=== PATIENT | male | born 1995 | race Two or more races ===

== ENCOUNTER 2018-01-06 15:28 | Inpatient (IN) | payer OTHER ==
--- NOTE | 2018-01-06 16:04 | EDPHY ---
H & P Stated Complaint: sent from [facility]. L rib pain Time Seen by Provider: 01/06/18 15:33 HPI/ROS: CHIEF COMPLAINT: Chest pain, shortness of breath HISTORY OF PRESENT ILLNESS: 22-year-old male presents with chest pain and shortness of breath. He awoke this morning with chest pain. The chest pain 1st occurred when he bent over to pick something up. The pain is located in the central chest and is associated with exertional shortness of breath. He also has a mild cough. He went to [facility], and a chest x-ray revealed a moderate left pneumothorax. No recent trauma and no prior history of pneumothorax. REVIEW OF SYSTEMS: complete 10 point ROS reviewed and is negative except for the noted elements in the HPI - Personal History Current Tetanus/Diphtheria Vaccine: Yes Current Tetanus Diphtheria and Acellular Pertussis (TDAP): Yes - Medical/Surgical History Hx Asthma: No Hx Chronic Respiratory Disease: No Hx Diabetes: No Hx Cardiac Disease: No Hx Renal Disease: No Hx Cirrhosis: No Hx Alcoholism: No Hx HIV/AIDS: No Hx Splenectomy or Spleen Trauma: No Other PMH: anxiety - Social History Smoking Status: Never smoked Alcohol Use: Sober Additional Social History: Student at [employer], studying psychology - Physical Exam Exam: General Appearance: Alert, pleasant Eyes: Pupils equal and round, no conjunctival pallor ENT, Mouth: Mucous membranes moist Neck: Normal inspection Respiratory: Normal respiratory rate, Lungs are clear to auscultation Cardiovascular: Regular rate and rhythm Gastrointestinal: Abdomen is soft and nontender Neurological: A&O, nonfocal, normal gait Skin: Warm and dry, no rash Extremities: Normal inspection Psychiatric: Mood and affect normal Constitutional: Initial Vital Signs Temperature (C) 37.2 C 01/06/18 15:38 Heart Rate 97 01/06/18 15:38 Respiratory Rate 16 01/06/18 15:38 Blood Pressure 152/96 H 01/06/18 15:38 O2 Sat (%) 98 01/06/18 15:38 O2 Delivery Mode Room Air Allergies/Adverse Reactions: No Known Allergies Allergy (Verified 01/06/18 18:26) Home Medications: Medication Instructions Recorded NK [No Known Home Meds] 01/06/18 Medical Decision Making - Diagnostics Imaging Results: CXR: moderate left PTX Imaging: Discussed imaging studies w/ manager call center Radiologist, I viewed and interpreted images myself ED Course/Re-evaluation: This pt presents with a spontaneous PTX. VS stable including normal O2 saturation. Dr. Sanchez was consulted and saw pt in ED. Chest tube ( Heimlich valve) placed by Dr. Sanchez. Pt tolerated procedure well. VS remain unremarkable and pt has minimal pain. Pt admitted for obs. Differential Diagnosis: includes though not limited to ACS, pneumonia, PE, dissection - Data Points Medications Given: Hydrocodone Bitart/Acetaminophen (Myrtle 5/325) 1 - 2 tab PO Q4 PRN PRN Reason: Pain, Moderate Able to Take PO Stop: 01/16/18 17:27 Last Admin: 01/06/18 19:48 Dose: 1 tab Departure - Departure Disposition: [facility] Acute Clinical Impression: Pneumothorax on left Condition: Fair
[2018-01-06] MEDS ORDERED: ONDANSETRON 4 MG/2 ML VIAL IVP PRN (17:28)
--- NOTE | 2018-01-06 18:29 | GOP ---
DATE OF ADMISSION: 01/06/2018 PREOP DIAGNOSIS: Left pneumothorax. POSTOP DIAGNOSIS: Left pneumothorax. OPERATION PERFORMED: Left tube thoracostomy. INDICATIONS: A 22-year-old male with a left pneumothorax. DESCRIPTION OF PROCEDURE: Patient positioned 30 degrees head up. The anterior chest scrubbed with C hloraPrep, draped in the usual sterile fashion. Approximately 2 fingerbreadths above the left nipple , the skin was anesthetized, a small incision made, and further 1% lidocaine was infiltrated down thr ough the pectoralis muscle and into the pleural space, where air was easily aspirated. A pneumo cath 8-Panamanian catheter was slid over needle introducer and into the space, and when air was obtained, the catheter was advanced off the stylet. This was connected to a Heimlich valve, securely taped to the skin, where the Heimlich valve showed normal function and it was venting air. The patient tolerated the procedure well. /[id number]/MODL
--- NOTE | 2018-01-06 18:35 | GHP ---
CHIEF COMPLAINT: Left pleuritic chest pain. PRESENT ILLNESS: A 22-year-old male who awoke this morning with some pleuritic pain, [facility] where a chest x-ray showed a pneumothorax on the left. He was transferred to [facility] where a repeat chest x-ray shows a left pneumothorax with a 3 3 mm drop by my measurement. The radiologist read this as 4 cm. I recommended a chest tube be placed. PAST MEDICAL HISTORY: ALLERGIES: None. CURRENT MEDICATIONS: None. PREVIOUS SURGERY: None. REVIEW OF SYSTEMS: Denies asthma, heart trouble, diabetes, epilepsy, rheumatic fever. 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 PHYSICAL EXAM: GENERAL: Well-developed, tall male. HEENT: No scleral icterus. Pharynx clear. NECK: Supple without adenopathy. No supraclavicular nor axillary crepitus. LUNGS: Clear. HEART: Normal S1, S2 without murmur. ABDOMEN: Soft, benign. EXTREMITIES: Grossly normal. NEUROLOGICAL: Grossly n ormal. ASSESSMENT/PLAN: Spontaneous left pneumothorax, first episode. RECOMMENDATIONS: Left chest tube placement. /[id number]/MODL
[2018-01-06] MEDS: HYDROCODONE/APAP 5/325 TAB PO PRN ×2 (18:56→19:48)
--- NOTE | 2018-01-07 06:42 | SOAPPROG ---
SOAP Progress Note Assessment/Plan: Assessment: Plan: Subjective: feels better. lungs clear. cxr- litttler or no pneumothorax. no air leak with underwater test. plan: check later today- remove ct if no air leak than, dc after another cxr. Objective: Vital Signs Temp Pulse Resp BP Pulse Ox 36.6 C 66 16 119/69 96 01/07/18 03:10 01/07/18 03:10 01/07/18 03:10 01/07/18 03:10 01/07/18 03:10 ICD10 Worksheet Patient Problems: Problems Problem Status Onset Pneumothorax on left Acute - ICD10 Problem Qualifiers (1) Pneumothorax on left
--- NOTE | 2018-01-07 08:18 | PDMN ---
Medical Necessity Medical necessity: MCG: M500 pneumothorax- A-2 days: spontaneous pneumothorax req CT.
--- NOTE | 2018-01-07 09:34 | SOAPPROG ---
SOAP Progress Note Assessment/Plan: Assessment: left pneumothorax persistent air leak with functioning Heimlich valve/8Fr. catheter Plan: continue observation/discussed issues related to air travel and smoking Craig Avendano MD, FACS 01/07/18 09:32 Subjective: resting comfortably Objective: Vital Signs Temp Pulse Resp BP Pulse Ox 36.7 C 65 16 119/71 96 01/07/18 07:32 01/07/18 07:32 01/07/18 07:32 01/07/18 07:32 01/07/18 07:32 Physical Exam - Physical Exam General Appearance: alert, no apparent distress Respiratory: other (persistant air leak with cough/valsalva, dressing intact) Neuro/Psych: alert, normal mood/affect ICD10 Worksheet Patient Problems: Problems Problem Status Onset Pneumothorax on left Acute
--- NOTE | 2018-01-08 09:03 | SOAPPROG ---
SOAP Progress Note Assessment/Plan: Assessment: Plan: Subjective: vss, af lungs cclear, nml bs right and left. air leak quite present, phasic. will check cxr daily- obivoiusly ct wisdom asha in until leak resolves. suction on ct may or may not improve situation. discusssed posssilbe bleb stapleing with pt if leak does not stop. Objective: Vital Signs Temp Pulse Resp BP Pulse Ox 36.7 C 63 20 116/76 95 01/08/18 08:00 01/08/18 08:00 01/08/18 08:00 01/08/18 08:00 01/08/18 08:00 01/07/18 01/08/18 01/09/18 05:59 05:59 05:59 Intake Total 1890 Balance 1890 ICD10 Worksheet Patient Problems: Problems Problem Status Onset Pneumothorax on left Acute - ICD10 Problem Qualifiers (1) Pneumothorax on left
--- NOTE | 2018-01-08 14:42 | ASMTCMCOM ---
CM Note CM Note Notes: Case Management Chart Review for Discharge Support: Patient is a 22 y/o male with admitted via D ED for spontaneous pneumothorax. He is a student at . CM met with patient, he will discharge independent with support from room mate. CM to follow. D/C Plan: Independent. Date Signed: 01/08/2018 02:42 PM Electronically Signed By:Padmini Elliott
--- NOTE | 2018-01-09 07:07 | SOAPPROG ---
SOAP Progress Note Assessment/Plan: Assessment: Plan: Subjective: vss, af still with significant phasic air leak. last nights cxr showed nopneumo, but i suspect there is a 2 cm drop this am. ct clearly functioning, plan cont suction as is, consider bleb stapling if unimproved in several more days. i doubt a bigger tube will make a difference. Objective: Vital Signs Temp Pulse Resp BP Pulse Ox 36.7 C 58 L 16 119/68 97 01/09/18 03:04 01/09/18 03:04 01/09/18 03:04 01/09/18 03:04 01/09/18 03:04 01/08/18 01/09/18 01/10/18 05:59 05:59 05:59 Intake Total 1890 1700 Output Total 1000 Balance 1890 700 ICD10 Worksheet Patient Problems: Problems Problem Status Onset Pneumothorax on left Acute - ICD10 Problem Qualifiers (1) Pneumothorax on left
--- NOTE | 2018-01-10 07:15 | SOAPPROG ---
SOAP Progress Note Assessment/Plan: Assessment: Plan: Subjective: no complaints, other than boredom, lungs clear cxr- lung looks up today, possible very small pneumo. still with a phasic air leak, but slower than yesterday. plan: continue suction. discussed option of surgical correction if not improving as week goes on. Objective: Vital Signs Temp Pulse Resp BP Pulse Ox 37.0 C 52 L 14 126/62 H 95 01/10/18 04:00 01/10/18 04:00 01/10/18 04:00 01/10/18 04:00 01/10/18 04:00 01/09/18 01/10/18 01/11/18 05:59 05:59 05:59 Intake Total 1700 Output Total 1000 Balance 700 ICD10 Worksheet Patient Problems: Problems Problem Status Onset Pneumothorax on left Acute - ICD10 Problem Qualifiers (1) Pneumothorax on left
--- NOTE | 2018-01-11 09:29 | POSTOPPROG ---
Post Op Note Date of Operation: 01/11/18 Surgeon: Ulysses Mosher Anesthesia: Local (Specify) (10 cc 1% lidocaine) Pre-op Diagnosis: 50% PTX with mediastinal shift with nonfunctional PTX tube Post-op Diagnosis: 50% PTX with mediastinal shift Indication: 50% PTX with mediastinal shift Procedure: placement of new PTX tube Findings: 50% PTX with mediastinal shift Inf/Abcess present in the surg proc area at time of surgery?: No EBL: Minimal Total fluids administered: 0 Complications: none Specimen(s): none
--- NOTE | 2018-01-11 10:18 | GOP ---
DATE OF OPERATION: 01/11/2018 SURGEON: Ulysses Mosher MD PREOPERATIVE DIAGNOSIS: Approximately 50% pneumothorax with mediastinal shift with nonfunctional pneumothorax tube. POSTOPERATIVE DIAGNOSIS: Approximately 50% pneumothorax with mediastinal shift with nonfunctional pneumothorax tube. PROCEDURE PERFORMED: Placement of new pneumothorax tube and removal of the 1st. FINDINGS: Approximately 50% pneumothorax with mediastinal shift with nonfunctional pneumothorax tube. ESTIMATED BLOOD LOSS: Minimal. INDICATIONS: Approximately 50% pneumothorax with mediastinal shift with nonfunctional pneumothorax tube. DESCRIPTION OF PROCEDURE: The patient was placed in the sitting position. The Tegaderm dressing was removed over the prior pneumothorax tube. The thorax tube was disconnected. Attempt was made to clear it using a 10 cc syringe. This was not successful. Chest was carefully prepped and draped. A 2nd pneumothorax tube was placed higher in the chest. With pursed lip breathing, a large amount of air was evacuated. A chest x-ray was obtained before all air had been eliminated. It showed the lung to be up but not completely up. The patient was connected to suction and suctioned through a Pleur-evac and shortly thereafter the leak was resolved. Note was made that the pneumothorax tube was sewn in position. It was covered with a Tegaderm. He will go to radiology for a CAT scan of his chest to evaluate for blebs. Note that this is his 1st spontaneous pneumothorax and has been not sealing well over the last several days. Surgery may become necessary. /[id number]/MODL MTDD
--- NOTE | 2018-01-11 10:36 | ASMTCMCOM ---
CM Note CM Note Notes: CM spoke to MIGDALIA Ford. Pt has a new chest tube. Pt had a CT. Pt may need surgery pending what CT shows. Pt will still most likely d/c independent when medically stable. CM available for changes. Plan: Independent Date Signed: 01/11/2018 10:35 AM Electronically Signed By:SOUTH Elliott
[2018-01-11] MEDS ORDERED: HYDROmorphONE/DILAUDID 1 MG/ML INJ IVP PRN (10:52)
[2018-01-11] MEDS: KETOROLAC 30 MG/1 ML SDV IVP SCH ×4 (11:47→23:34)
[2018-01-11] MEDS: ACETAMINOPHEN 500 MG TAB PO SCH ×2 (13:02→21:00)
[2018-01-12] MEDS: KETOROLAC 30 MG/1 ML SDV IVP SCH ×3 (05:22→17:55)
[2018-01-12] MEDS: ACETAMINOPHEN 500 MG TAB PO SCH ×3 (05:22→21:51)
--- NOTE | 2018-01-12 13:42 | POSTOPPROG ---
Post Op Note Date of Operation: 01/12/18 Surgeon: Ulysses Mosher Anesthesia: Local (Specify) (15cc 1% lidocaine) Pre-op Diagnosis: spontaneous PTX, failed PTX catheter Post-op Diagnosis: spontaneous PTX, failed PTX catheter Indication: spontaneous PTX, failed PTX catheter Procedure: placement of a ptx tube Findings: spontaneous PTX, failed PTX catheter Inf/Abcess present in the surg proc area at time of surgery?: No EBL: Minimal Total fluids administered: none Complications: none Specimen(s): none
--- NOTE | 2018-01-12 17:07 | SOAPPROG ---
SOAP Progress Note Assessment/Plan: Assessment: Plan: Subjective: vss, af pt now with third small bore chest tube. i again told him a thoracoscopy and bleb stapleing would be definitive. we plan on sat surgery unless leak stops in next 24 hours. pt waiting for mother to fly out tomorrow. Objective: Vital Signs Temp Pulse Resp BP Pulse Ox 36.6 C 82 16 148/82 H 96 01/12/18 15:00 01/12/18 15:00 01/12/18 15:00 01/12/18 15:00 01/12/18 15:00 01/11/18 01/12/18 01/13/18 05:59 05:59 05:59 Intake Total 2300 Output Total 8 Balance 2292 ICD10 Worksheet Patient Problems: Problems Problem Status Onset Pneumothorax on left Acute - ICD10 Problem Qualifiers (1) Pneumothorax on left
[2018-01-13] MEDS: KETOROLAC 30 MG/1 ML SDV IVP SCH ×5 (00:55→23:54)
[2018-01-13] MEDS: ACETAMINOPHEN 500 MG TAB PO SCH ×3 (05:14→21:12)
--- NOTE | 2018-01-13 15:08 | ASMTCMCOM ---
CM Note CM Note Notes: Pt admitted to hospital for a pneumothorax, he is a student at . He has a chest tube with a leak and will have surgery Tuesday unless leak stops. Pt's mother is flying out Tuesday. Anticipate will dc w/support of mother when medically stable. CM available for any changes. DC Plan: Independent Date Signed: 01/13/2018 03:08 PM Electronically Signed By:Kristina Galvez RN
--- NOTE | 2018-01-13 18:37 | SOAPPROG ---
SOAP Progress Note Assessment/Plan: Assessment: Plan: Subjective: vss,af. stil has air leak. plan vats pleuradesis tomorrow. Objective: Vital Signs Temp Pulse Resp BP Pulse Ox 36.7 C 62 16 119/78 97 01/13/18 15:29 01/13/18 15:29 01/13/18 15:29 01/13/18 15:29 01/13/18 15:29 01/12/18 01/13/18 01/14/18 05:59 05:59 05:59 Intake Total 2300 1000 500 Output Total 8 0 Balance 2292 1000 500 ICD10 Worksheet Patient Problems: Problems Problem Status Onset Pneumothorax on left Acute - ICD10 Problem Qualifiers (1) Pneumothorax on left
[2018-01-14] MEDS: KETOROLAC 30 MG/1 ML SDV IVP SCH ×3 (05:49→16:58)
[2018-01-14] MEDS: ACETAMINOPHEN 500 MG TAB PO SCH ×3 (05:49→21:04)
[2018-01-14] MEDS ORDERED: BUPIVACAINE 0.5% 30 ML SDV ONE (12:17)
[2018-01-14] MEDS ORDERED: TALC 3 GM INTRAPLEURAL VIAL ONE (12:17)
[2018-01-14] MEDS ORDERED: CEFAZOLIN 2 GM/DEXTROSE/100 ML BAG IV ONE (12:50)
[2018-01-14] MEDS ORDERED: MIDAZOLAM 2 MG/2 ML VIAL IVP ONE (13:02)
[2018-01-14] MEDS ORDERED: fentaNYL 100 MCG/2 ML INJ ONE ×2 (13:02)
[2018-01-14] MEDS ORDERED: PROPOFOL 200 MG/20 ML VIAL ONE ×2 (13:03→14:12)
[2018-01-14] MEDS ORDERED: MIDAZOLAM 2 MG/2 ML VIAL ONE (13:03)
--- NOTE | 2018-01-14 13:03 | SOAPPROG ---
SOAP Progress Note Assessment/Plan: Assessment: Plan: Subjective: vss, af no change, ready for surgery,. Objective: Vital Signs Temp Pulse Resp BP Pulse Ox 36.8 C 67 16 116/87 H 98 01/14/18 12:34 01/14/18 12:34 01/14/18 12:34 01/14/18 12:34 01/14/18 12:34 01/13/18 01/14/18 01/15/18 05:59 05:59 05:59 Intake Total 1000 750 Output Total 0 0 Balance 1000 750 ICD10 Worksheet Patient Problems: Problems Problem Status Onset Pneumothorax on left Acute - ICD10 Problem Qualifiers (1) Pneumothorax on left
[2018-01-14] MEDS ORDERED: ROCURONIUM 50 MG/5 ML VIAL ONE (13:04)
[2018-01-14] MEDS ORDERED: LIDOCAINE 2% 5 ML SDV ONE (13:05)
--- NOTE | 2018-01-14 14:21 | PDANEPAE ---
ANE History of Present Illness left thoracoscopy for PTX ANE Past Medical History - Cardiovascular History Hx Hypertension: No Hx Arrhythmias: No Hx Chest Pain: No Hx Coronary Artery / Peripheral Vascular Disease: No Hx CHF / Valvular Disease: No Hx Palpitations: No - Pulmonary History Hx COPD: No Hx Asthma/Reactive Airway Disease: No Hx Recent Upper Respiratory Infection: No Hx Oxygen in Use at Home: No Hx Sleep Apnea: No Sleep Apnea Screening Result - Last Documented: Negative - Endocrine History Hx Diabetes: No Hypothyroid: No Hyperthyroid: No Obesity: no - Chronic Pain History Chronic Pain: No ANE Review of Systems Review of systems is: negative Review of Systems: - Exercise capacity Exercise capacity: >=4 METS ANE Patient History - Allergies Allergies/Adverse Reactions: No Known Allergies Allergy (Verified 01/06/18 18:26) - Home Medications Home medications: home medication list seen and reviewed Home Medications: NK [No Known Home Meds] 01/06/18 [Last Taken Unknown] - NPO status NPO Since - Liquids (Date): 01/14/18 NPO Since - Liquids (Time): 00:00 NPO Since - Solids (Date): 01/14/18 NPO Since - Solids (Time): 00:00 - Anes Hx Anes Hx: no prior problems - Smoking Hx Smoking Status: Never smoked - Alcohol Use Alcohol Use: Sober ANE Labs/Vital Signs - Vital Signs Blood Pressure: 116/87 Heart Rate: 67 Respiratory Rate: 16 O2 Sat (%): 98 Height: 185.42 cm Weight: 83.915 kg ANE Physical Exam - Airway Neck exam: FROM Mallampati Score: Class 2 Mouth exam: normal dental/mouth exam - Pulmonary Pulmonary: no respiratory distress - Cardiovascular Cardiovascular: regular rate and rhythym - ASA Status ASA Status: I ANE Anesthesia Plan Anesthesia Plan: general endotracheal anesthesia Specialized Airway: double lumen tube, video laryngoscope, fiberoptic intubation Urgent/Emergent Case: Daysi serrato completed preop but documented later for safe timely pt care
--- NOTE | 2018-01-14 14:21 | POSTANESTH ---
Post Anesthetic Evaluation Cardiovascular Status: Normal, Stable Respiratory Status: Normal, Stable Level of Consciousness/Mental Status: Can Participate in Eval, Alert and Oriented Pain Control: Adequate, Prn Tx Ordered Nausea/Vomiting Control: Adequate, Prn Tx Ordered Complications Possibly Related to Anesthesia: None Noted
[2018-01-14] MEDS ORDERED: ONDANSETRON 4 MG/2 ML VIAL ONE (14:22)
[2018-01-14] MEDS ORDERED: SUGAMMADEX SODIUM 200 MG/2 ML VIAL IVP ONE (14:22)
[2018-01-14] MEDS ORDERED: KETOROLAC 30 MG/1 ML SDV ONE (14:22)
[2018-01-14] MEDS ORDERED: fentaNYL 100 MCG/2 ML INJ IVP PRN (14:51)
[2018-01-14] MEDS ORDERED: PROMETHAZINE HCL 25 MG/ML INJ IVP PRN (14:51)
[2018-01-14] MEDS ORDERED: LABETALOL HCL 20 MG/4 ML INJ IVP PRN (14:51)
[2018-01-14] MEDS ORDERED: oxyCODONE IR 5 MG TAB PO PRN (14:51)
[2018-01-14] MEDS ORDERED: HYDROCODONE/APAP 5/325 TAB PO PRN (14:51)
[2018-01-14] MEDS ORDERED: ACETAMINOPHEN 500 MG TAB PO PRN (14:51)
[2018-01-14] MEDS ORDERED: ONDANSETRON 4 MG/2 ML VIAL IVP PRN ×2 (14:51→15:20)
[2018-01-14] MEDS ORDERED: NALOXONE HCL 0.4 MG/ML INJ IVP PRN (14:51)
[2018-01-14] MEDS ORDERED: LR 500 ML IV PRN (14:51)
[2018-01-14] MEDS ORDERED: METOCLOPRAMIDE 10 MG/2 ML VIAL IVP PRN (14:51)
[2018-01-14] MEDS ORDERED: ALBUTEROL 3 ML DEYVIAL IH PRN (14:51)
--- NOTE | 2018-01-14 15:13 | ASMTCMCOM ---
CM Note CM Note Notes: Patient's mother Mrs. Goldstein is here and requesting assistance with FMLA paper work. No hospital medicine following. Patient s/p vats procedure today and has no local PCP but is seen at [facility]. Patient has had some difficulty with resolution of pneumothoraces and CM unsure of what his future medical needs might be at that point. Will place FMLA on chart in hopes surgery might sign and give insight to patient needs. CM to follow. Plan: TBD Date Signed: 01/14/2018 03:13 PM Electronically Signed By:Yaneth Lance RN
[2018-01-14] MEDS ORDERED: HYDROmorphONE/DILAUDID 2 MG/ML INJ ONE (15:18)
[2018-01-14] MEDS: HYDROmorphONE/DILAUDID 2 MG/ML INJ IVP PRN ×3 (15:20→15:44)
--- NOTE | 2018-01-14 15:24 | POSTOPPROG ---
Post Op Note Date of Operation: 01/14/18 Surgeon: Gerardo Sanchez Pre-op Diagnosis: blebs and air leak left lung Post-op Diagnosis: same Indication: as sabove Procedure: thoracoscopy, bleb stapeling, mechanical and talc pleuradesis Inf/Abcess present in the surg proc area at time of surgery?: No EBL: Minimal
--- NOTE | 2018-01-14 16:44 | GPN ---
DATE OF PROCEDURE: 01/14/2018 PREOP DIAGNOSES: Pneumothorax, left lung, secondary to blebs. POSTOP DIAGNOSES: Pneumothorax, left lung, secondary to blebs. OPERATIONS: Left thoracoscopy, bleb stapling, mechanical and talc pleurodesis. SURGEON: Gerardo Sanchez MD INDICATIONS: A 22-year-old male with an air leak on the left side, known bleb on CT scan, failure to improve after 6 days of chest tube suction. PROCEDURE: Patient intubated with a double-lumen tube, positioned left side up, the bed flexed to ex pand the ribcage, and the chest scrubbed with ChloraPrep, draped in the usual sterile fashion. Three trocars were placed, 1 in the midline below the nipple, 1 in the 7th or 8th interspace in the anteri or axillary line, and the other just anterior to the axillary line at approximately the 3rd interspac e. With trocars placed, the lung was moderately deflated, and this improved throughout the course of the case. Immediately visible was a round bleb at the top of the left lung, as suggested by CT scan . This was grasped, and an Endo LES stapler with a blue staple was used to come across the apex of t he lung below the bleb. Photographs were taken. The specimen was retrieved through the stapler port without incident. Mechanical pleurodesis was then done by rubbing the undersurface of the chest wal l as completely as possible with a 4 x 4 on a sponge stick to create some fresh bleeding, after which a talc pleurodesis was done as well, and then, a #20 chest tube placed to the apex of the lung, sutu red in place, and all port sites then closed with Vicryl and Dermabond. A silk suture was used to fi x the chest tube to the skin and a bulky gauze dressing and tape applied. The patient tolerated the procedure well. /[id number]/MODL
[2018-01-14] MEDS: LR 1,000 ML IV SCH (16:59)
[2018-01-15] MEDS: KETOROLAC 30 MG/1 ML SDV IVP SCH ×5 (00:25→23:16)
[2018-01-15] MEDS: LR 1,000 ML IV SCH (03:03)
[2018-01-15] MEDS: ACETAMINOPHEN 500 MG TAB PO SCH (05:28)
[2018-01-15] MEDS: HYDROCODONE/APAP 5/325 TAB PO PRN ×3 (10:13→20:22)
--- NOTE | 2018-01-15 14:14 | ASMTCMCOM ---
CM Note CM Note Notes: Patient is POD #1 L thoracoscopy, bleb stapling, and pleurodesis. He has a chest tube. I filled in most of the [facility] paperwork for his mother, and Dr Calvert signed. CM will complete paperwork prior to discharge. Patient will d.c home [facility] support of mother. Date Signed: 01/15/2018 02:13 PM Electronically Signed By:Millicent Olsen RN
[2018-01-16] MEDS: HYDROCODONE/APAP 5/325 TAB PO PRN ×2 (03:12→09:47)
[2018-01-16] MEDS: KETOROLAC 30 MG/1 ML SDV IVP SCH (05:02)
--- NOTE | 2018-01-16 10:45 | SOAPPROG ---
SOAP Progress Note Assessment/Plan: 01/16/18 10:43 POD#2 Assessment: No air leak, trace apical PTX Chest tube removed Plan: F/u CXR planned Subjective: I'm glad to have the tube out Objective: Vital Signs Temp Pulse Resp BP Pulse Ox 36.8 C 56 L 14 117/66 94 01/16/18 07:27 01/16/18 07:27 01/16/18 07:27 01/16/18 07:27 01/16/18 07:27 01/15/18 01/16/18 01/17/18 05:59 05:59 05:59 Intake Total 2300 1850 Output Total 640 778 Balance 1660 1072 - Time Spent With Patient Time Spent With Patient: 15 - Pending Discharge Pending Discharge Within 24 Hours: Yes Pending Discharge Date: 01/17/18 Pending Discharge Time: 11:00 ICD10 Worksheet Patient Problems: Problems Problem Status Onset Pneumothorax on left Acute
[2018-01-16 16:23] VITALS: BP 116/88
--- NOTE | 2018-01-16 18:48 | GDS ---
PRESENT ILLNESS: Patient was admitted on January 06 with a spontaneous left pneumothorax. He und erwent several small chest tube placements, which could not fully expand the lung. He then underwent a thoracoscopic bleb resection and talc mechanical pleurodesis. No air leak. Chest x-ray after [place] st tube was removed shows 99% expansion. FINAL DIAGNOSIS: Spontaneous pneumothorax. OPERATION: As above. DISPOSITION: To home. Follow up with Dr. Sanchez in a week. /[id number]/MODL
== END 2018-01-16 17:00 | disposition home or self-care (01) | DRG 168 ==
LOC: OBSVTOIN 17:15 → F3E 17:47
PROVIDERS: ADMIT Surgery; ATTEND Surgery
DX: J93.83 Other pneumothorax (principal)
CPT/HCPCS: J0690; J1170; J1885; J2250; J2270; J2405; J2704; J3010